=== PATIENT | female | born 1960 ===

== ENCOUNTER → 2020-09-18 | Outpatient (CLI) | payer OTHER ==
[~2020-09-18] MED LIST: CHRM1TAB PO; OMNIPAQUE 350 MG/ML, 100ML BOTTLE ONE
[2020-09-18 15:03] LABS: CREATININE 0.97 mg/dL (0.55-1.02)
== END | disposition home or self-care (01) ==
LOC: RAD 14:32
PROVIDERS: ATTEND Specialist
DX: N20.0 Calculus of kidney (principal); N85.2 Hypertrophy of uterus; N95.0 Postmenopausal bleeding; D25.9 Leiomyoma of uterus, unspecified; R19.00 Intra-abdominal and pelvic swelling, mass and lump, unspecified site; R10.2 Pelvic and perineal pain; N28.89 Other specified disorders of kidney and ureter; Z90.49 Acquired absence of other specified parts of digestive tract
CPT/HCPCS: 36415; 71260; 74177; 82565; Q9967

== ENCOUNTER → 2020-09-19 | Outpatient (CLI) | payer OTHER ==
[~2020-09-19] MED LIST changes: -OMNIPAQUE 350 MG/ML, 100ML BOTTLE ONE
[2020-09-19 12:23] LABS: BASOPHILS % (AUTO) 1 % (0-1); EOSINOPHILS % (AUTO) 5 % (1-7); LYMPHOCYTES % (AUTO) 25 % (22-44); MEAN CORPUSCULAR HEMOGLOBIN 28.1 pg (27.0-34.8); MEAN CORPUSCULAR HGB CONC 33.2 g/dL (32.4-35.8); MEAN PLATELET VOLUME 9.7 fL (7.4-10.4); MONOCYTES % (AUTO) 8 % (2-9); NEUTROPHILS % (AUTO) 61 % (42-75); PLATELET COUNT 194 x10^3/uL (130-400); RED BLOOD COUNT 5.61 x10^6/uL (3.82-5.3); RED CELL DISTRIBUTION WIDTH 14.4 % (9.6-15.2)
[2020-09-19 12:25] LABS: INTERNATIONAL NORMALIZED RATIO 1.02 (0.93-1.1); PROTHROMBIN TIME 10.9 Seconds (9.6-11.5)
[2020-09-19 12:26] LABS: CHLORIDE 104 mmol/L (98-107)
[2020-09-19 12:28] LABS: MD NO
[2020-09-19 12:34] LABS: ALANINE AMINOTRANSFERASE 30 U/L (12-78); ALBUMIN 3.9 g/dL (3.4-5.0); ALKALINE PHOSPHATASE 116 U/L (45-117); ANION GAP 6 mmol/L (5-15); BILIRUBIN,TOTAL 0.8 mg/dL (0.2-1.0); CALCIUM 9.2 mg/dL (8.5-10.1); TOTAL PROTEIN 7.9 g/dL (6.4-8.2)
== END | disposition home or self-care (01) ==
LOC: STAR 10:57
PROVIDERS: ATTEND Specialist
DX: Z01.818 Encounter for other preprocedural examination (principal); N95.0 Postmenopausal bleeding; D25.9 Leiomyoma of uterus, unspecified; N85.2 Hypertrophy of uterus; R19.00 Intra-abdominal and pelvic swelling, mass and lump, unspecified site; R10.2 Pelvic and perineal pain; Z20.822 Contact with and (suspected) exposure to COVID-19
CPT/HCPCS: 36415; 71046; 80053; 83615; 85025; 85610; 85730; 86304; 93005; U0003